=== PATIENT | male | born 1985 | race Two or more races ===

== ENCOUNTER 2024-12-05 16:40 | Emergency (ER) | payer OTHER, SELFPAY ==
[2024-12-05 17:51] VITALS: BP 149/85; PULSE 77; RESP 18; TEMP 36.8; O2SAT 98; BMI 28.1
[2024-12-05] MEDS: TETRACAINE PF OP SOL 0.5% 4 ML DRPETTE 1 DROP LEFT EYE (18:12)
[2024-12-05] MEDS: FLUORESCEIN SOD 1 MG STRP LEFT EYE (18:12)
--- NOTE | 2024-12-05 18:46 | PD.EDADULT ---
ED General RME/HPI General Chief complaint: Eye Problems Stated complaint: LEFT EYE BLOODY BUT ASTILL HAS VISION. Time Seen by Provider: 12/05/24 17:59 Arrival date/time: 12/05/24 16:40 CC: Left eye irritation HPI patient is ongoing for the past 2 weeks the patient has had small bleeding to the sclera of his left eye, seen by an inspection engineer, states that now he has a ring in the things that there is an ulcer in this area. Patient denies any actual pain but states he feels like there is a foreign body sensation in there. Patient denies loss of vision altered little vision blurred vision seeing spots. Patient has an upcoming inspection engineer appointment in 2 days. Denies fever chills chest pain shortness of breath or difficulty breathing. Related Data Previous Rx's ?Medication ?Instructions ?Recorded tobramycin 0.3 % eye drops 1 drp ophthalmic (eye) Q4H #5 mL 12/05/24 Allergies Allergy/AdvReac Type Severity Reaction Status Date / Time No Known Allergies Allergy Verified 12/05/24 16:45 Review of Systems Review of Systems Narrative Review of Systems: GEN: No fever, no chills, no weight loss EYES: No discharge, no visual changes, + pain HEENT: No ear pain, no congestion, no sore throat PULM: No shortness of breath, no cough, no congestion CV: No chest pain, no dyspnea on exertion, no palpitations GI: No nausea, no vomiting, no diarrhea, no pain, no constipation : No frequency, no urgency, no dysuria MUSC/SKEL: No joint pain, no back pain SKIN: No rash PSYCH: No hallucinations, no depression HEME/LYMPH: No easy bleeding or bruising tendencies NEURO: No weakness, no headache Past Medical History Social History SMOKING STATUS: Never smoker ED Exam Narrative Physical exam: [General: Not in any acute distress Head normocephalic HEENT: Eyes: Left eye, patient has subconjunctival hemorrhage of the medial aspect of the sclera, in the center under fluorescein dye there is a proximately a 5 mm circular ulceration that is uptake of the dye, pupil is PERRLA EOMs are intact. Right eye is completely intact with no acute finding. Within acceptable limits Neck is supple nontender Chest equal chest rise nontender to palpation Respiratory: Clear to auscultation no wheezes crackles or rubs CV: Rate rhythm is regular no murmurs rubs or clicks Abdomen is distended secondary to body habitus soft nontender no masses positive bowel sounds all 4 quadrants Back: No CVA tenderness no spinous process tenderness from cervical spine thoracic and lumbar spine Neuro: Awake alert oriented x3 Glascow coma 15 no focal deficits] Course Course Course Narrative: Will start the patient on tobramycin and follow-up with ophthalmology if there is worsening of symptoms he can return to the emergency room medially for further evaluation. Quality Measures none Orders Category Date Time Status Fluorescein Sodium [[id number]] Med 12/05/24 18:00 Discontinued 1 mg LEFT EYE X1 ONE TETRACAINE Op Stephania 0.5% [Pontocaine Op Stephania 0.5%] Med 12/05/24 18:08 Discontinued 1 drop LEFT EYE X1 ONE Vital Signs Vital signs: Vital Signs Temperature 98.2 F 12/05/24 17:51 Pulse Rate 77 12/05/24 17:51 Respiratory Rate 18 12/05/24 17:51 Blood Pressure 149/85 H 12/05/24 17:51 Pulse Oximetry (%) 98 12/05/24 17:51 Oxygen Delivery Method Room Air 12/05/24 17:51 Discharge Plan Plan Patient Disposition: HOME (Self Care) Patient condition on transfer: Stable Prescriptions/Referrals Prescriptions/Med Rec: New tobramycin 0.3 % drops 1 drp ophthalmic (eye) Q4H Qty: 5 0RF Referrals: Christiano Carney MD [Physician] - In 1 week No Primary/Family,Physician [Primary Care Provider] - In 1 week Problem List Clinical Impression: Scleral disorder Patient/Caregiver Discharge Instructions Other Activity Instructions:: Take the drops every 4 hours as prescribed to left eye make sure you follow-up with the inspection engineer. If is a worsening of symptoms return the emergency room for reevaluation. Education Materials: How [facility] Works Print Language: Yoruba Stand Alone Forms: Felicity Award Info., Patient Portal Info Letter PA/LORRAINE Supervising Physician PA/LORRAINE Supervising Physician: Antolin Pugh ENP [facility] Clinical Information Provided by: none Medical Records reviewed None Meds/Rx considered, not ordered None Labs/Rad/Tests considered, not ordered None Chronic Illness/Social Conditions which may negatively complicate care or outcome(s)-explain: None or not applicable EKG EKG not done Labs Labs: Interpreted by me Imaging Imaging interpretation: none or see narrative above Medication Administration(s) none Medication Administration History Discontinued Medications Fluorescein Sodium (Fluorescein Sod 1 Mg Strp) 1 mg LEFT EYE X1 ONE Stop: 12/05/24 18:01 Last Admin: 12/05/24 18:12 Dose: 1 mg Documented By: CALLI Tetracaine HCl (Tetracaine Pf Op Stephania 0.5% 4 Ml Drpette) 1 drop LEFT EYE X1 ONE Stop: 12/05/24 18:09 Last Admin: 12/05/24 18:12 Dose: 1 drop Documented By: CALLI
== END 2024-12-05 19:38 | disposition home or self-care (01) ==
PROVIDERS: Emergency Provider Emergency Medicine
DX: H15.9 Unspecified disorder of sclera (principal)
CPT/HCPCS: 99282